=== PATIENT | male | born 1970 ===

== ENCOUNTER 2021-05-05 20:02 | Inpatient (IN) | payer MEDICAID, OTHER ==
[2021-05-05] MEDS ORDERED: ASPIRIN 325 MG TAB PO ONE (20:38)
[2021-05-05 20:54] LABS: Basophils # (Auto) 0.1 K/mm3 (0.0-0.1); Basophils % (Auto) 0.9 % (0.0-1.8); Eosinophils # (Auto) 0.1 K/mm3 (0.0-0.4); Eosinophils % (Auto) 1.7 % (0.0-4.3); Hematocrit 37.7 % (35.5-45.6); Hemoglobin 12.3 gm/dl (11.8-15.2); Lymphocytes # (Auto) 2.3 K/mm3 (1.2-5.4); Mean Corpuscular HGB Conc 33 % (32-34); Mean Corpuscular Volume 81 fl (84-94); Monocytes # (Auto) 0.7 K/mm3 (0.0-0.8); Monocytes % (Auto) 9.2 % (0.0-7.3); Platelet Count 272 K/mm3 (140-440); Red Blood Count 4.67 M/mm3 (3.65-5.03)
[2021-05-05 20:57] LABS: Red Cell Distribution Width 24.1 % (13.2-15.2)
[2021-05-05] MEDS ORDERED: FUROSEMIDE 40 MG/4 ML INJ IV ONE (21:00)
[2021-05-05] MEDS ORDERED: MORPHINE 4 MG/1 ML INJ IV ONE (21:00)
--- NOTE | 2021-05-05 21:07 | Emergency Department Report ---
ED Chest Pain HPI - General Chief Complaint: Chest Pain Stated Complaint: CHF,SOB,CHEST PAIN PUI?: No Time Seen by Provider: 05/05/21 20:51 Source: patient, RN notes reviewed, old records reviewed Mode of arrival: Ambulatory Limitations: No Limitations - History of Present Illness Initial Comments: The patient is a 50-year-old gentleman. He is not known to myself previously. His past medical history includes heart disease with stents, currently takes aspirin, also has a history of DVT and pulmonary embolism, currently on Eliquis, for the past 3 years, also has a history of sickle cell, with partial splenic infarction, and CHF, with ICD in situ. He has been back in [place] for about a month. Previously, he was living in [place], in [place]. He has been seen at both [facility], and [facility], in [place], and believes that he may have had a cardiac catheterization within the past 5 months. He is not quite sure what the catheterization showed. He presents to the ER today with a complaint of chest pain, shortness of breath, lower extremity swelling, feeling volume overloaded. He took aspirin and nitro at home with minimal improvement in symptoms. He has not received his Covid vaccination. He denies loss of taste and smell. He endorses nausea, without vomiting. No diaphoresis. No hematemesis of bright red blood per rectum. He denies use of erectile dysfunction medication. He endorses complete compliance with his Eliquis. Complaint: chest pain, other -: Gradual, hour(s) Pain Location: substernal, right chest Pain Radiation: none Quality: aching Consistency: constant Improves With: nothing Worsens With: nothing Aspirin use within the Past 7 Days: (1) Yes - Related Data Previous Rx's Medication Instructions Recorded Last Taken Type HYDROcodone/APAP 5-325 [[place] 1 each PO Q6HR PRN #20 tablet 09/11/14 Unknown Rx 5/325] Allergies Allergy/AdvReac Type Severity Reaction Status Date / Time ibuprofen [From Motrin] Allergy Unknown Verified 09/06/14 21:34 methocarbamol [From Robaxin] Allergy Hives Verified 09/06/14 21:35 Penicillins Allergy Unknown Verified 09/06/14 21:35 Heart Score - HEART Score History: Moderately suspicious EKG: Non-specific Age: 45-65 Risk factors: > 3 risk factors or hx of atherosclerotic disease Troponin: < normal limit HEART Score: 5 - EKG Read Time Time EKG Completed: 20:19 EKG Read Time: 20:20 - Critical Actions Critical Actions: 4-6 pts:12-16.6% risk of adverse cardiac event. Should be admitted ED Review of Systems ROS: Stated complaint: CHF,SOB,CHEST PAIN Other details as noted in HPI Constitutional: malaise. denies: fever Eyes: denies: eye discharge ENT: denies: epistaxis Respiratory: shortness of breath Cardiovascular: chest pain, edema Gastrointestinal: denies: abdominal pain, vomiting, hematemesis, melena, hematochezia Musculoskeletal: denies: back pain Psychiatric: anxiety Hematological/Lymphatic: denies: easy bleeding ED Past Medical Hx - Past Medical History Previous Medical History?: No Hx Hypertension: Yes Hx Heart Attack/AMI: Yes (x 5) Hx Sickle Cell Disease: Yes Additional medical history: defribillator/pacemaker - Surgical History Additional Surgical History: defribillator/pacemaker - Social History Smoking Status: Former Smoker Substance Use Type: None - Medications Home Medications: Home Medications Medication Instructions Recorded Confirmed Last Taken Type HYDROcodone/APAP 5-325 [[place] 1 each PO Q6HR PRN #20 tablet 09/11/14 Unknown Rx 5/325] ED Physical Exam - General Limitations: No Limitations General appearance: alert, anxious, in distress, obese - Head Head exam: Present: atraumatic, normocephalic - Eye Eye exam: Present: normal appearance, EOMI. Absent: nystagmus - ENT ENT exam: Present: normal exam, normal orophraynx, mucous membranes moist, normal external ear exam - Neck Neck exam: Present: normal inspection, full ROM. Absent: tenderness, meningismus - Respiratory Respiratory exam: Present: normal lung sounds bilaterally. Absent: respiratory distress, wheezes, rales, rhonchi, stridor - Cardiovascular Cardiovascular Exam: Present: regular rate, normal rhythm, JVD. Absent: bradycardia, tachycardia, irregular rhythm, systolic murmur, diastolic murmur, rubs, gallop - GI/Abdominal GI/Abdominal exam: Present: soft, normal bowel sounds. Absent: distended, tenderness, guarding, rebound, rigid, pulsatile mass - Rectal Rectal exam: Present: deferred - Extremities Exam Extremities exam: Present: normal inspection, full ROM, pedal edema (2-3+ edema in the bilateral lower extremities), other (2+ pulses noted in the bilateral upper and lower extremities. There is no palpable cord. negative Homans sign. Muscular compartments are soft. The pelvis is stable.). Absent: calf tenderness - Back Exam Back exam: Present: normal inspection, full ROM. Absent: tenderness, CVA tenderness (R), CVA tenderness (L), paraspinal tenderness, vertebral tenderness - Neurological Exam Neurological exam: Present: alert, oriented X3, other (No facial droop. Tongue midline. Extraocular movements intact bilaterally. Facial sensation intact to light touch in V1, V2, V3 distribution bilaterally. 5 and a 5 strength in 4 extremities. Sensation intact to light touch in 4 extremities.). Absent: motor sensory deficit - Psychiatric Psychiatric exam: Present: anxious - Skin Skin exam: Present: warm, dry, intact, normal color. Absent: rash ED Course Vital Signs 05/05/21 05/05/21 05/05/21 20:23 20:43 23:38 Temperature 98.5 F 98.8 F Pulse Rate 85 93 H 81 Respiratory 28 H 18 Rate Blood Pressure 154/96 130/83 130/102 O2 Sat by Pulse 95 100 Oximetry - Reevaluation(s) Reevaluation #1: 05/05/21 21:19 Differential diagnosis, including but not limited to: Acute congestive heart failure, right-sided heart failure, acute coronary syndrome, pneumonia, obesity, obstructive sleep apnea costochondritis, GERD, gastritis, hiatal hernia, pneumonia Assessment and plan: 50-year-old gentleman who presents to the ER today with a complaint of acute chest pain, moderate risk for major adverse cardiac event as per heart score, not tachycardic or hypoxic, reports compliance with Eliquis, with evidence of volume overload, manifest by JVD, lower extremity edema. Place patient on playground monitor, obtain appropriate laboratory studies, nitroglycerin and morphine for pain, Lasix for lower extremity edema and clinical volume overload. Chest x-ray, laboratory studies pending. We will request [facility] records [facility], and [place]. It is after hours, so I am not confident that we will receive these medical records in a timely fashion. However, this patient meets criteria for admission and hospitalization secondary to the aforementioned. I have discussed this plan of care with the patient, who verbalized understanding, who is amenable to this plan of care. Reevaluation #2: 05/05/21 21:28 Hospital physician, Dr. Cheatham, To admit patient to the medical service. He request CT angiogram of the chest. RASHAD score - Rashad Score Age > 65: (0) No Aspirin use within the Past 7 Days: (1) Yes 3 or more CAD Risk Factors: (1) Yes 2 or more Angina events in past 24 hrs: (1) Yes Known CAD with more than 50% Stenosis: (1) Yes Elevated Cardiac Markers: (0) No ST Deviation Greater than 0.5mm: (0) No RASHAD Score: 4 ED Medical Decision Making - Lab Data Result diagrams: 05/05/21 20:43 05/05/21 20:43 Vital Signs 05/05/21 20:23 Temperature 98.5 F Pulse Rate 85 Respiratory 28 H Rate Blood Pressure 154/96 O2 Sat by Pulse 95 Oximetry Lab Results 05/05/21 05/05/21 05/05/21 Range/Units 20:43 20:43 20:43 WBC 7.6 (4.5-11.0) K/mm3 RBC 4.67 (3.65-5.03) M/mm3 Hgb 12.3 (11.8-15.2) gm/dl Hct 37.7 (35.5-45.6) % MCV 81 L (84-94) fl MCH 26 L (28-32) pg MCHC 33 (32-34) % RDW 24.1 H (13.2-15.2) % Plt Count 272 (140-440) K/mm3 Lymph % (Auto) 30.0 (13.4-35.0) % [place] % (Auto) 9.2 H (0.0-7.3) % Eos % (Auto) 1.7 (0.0-4.3) % Baso % (Auto) 0.9 (0.0-1.8) % Lymph # (Auto) 2.3 (1.2-5.4) K/mm3 [place] # (Auto) 0.7 (0.0-0.8) K/mm3 Eos # (Auto) 0.1 (0.0-0.4) K/mm3 Baso # (Auto) 0.1 (0.0-0.1) K/mm3 Seg Neutrophils % 58.2 (40.0-70.0) % Seg Neutrophils # 4.4 (1.8-7.7) K/mm3 Sodium 135 L (137-145) mmol/L Potassium 3.6 (3.6-5.0) mmol/L Chloride 98.2 (98-107) mmol/L Carbon Dioxide 20 L (22-30) mmol/L Anion Gap 20 mmol/L BUN 12 (9-20) mg/dL Creatinine 1.1 (0.8-1.3) mg/dL Estimated GFR > 60 ml/min BUN/Creatinine Ratio 11 % Glucose 134 H (75-100) mg/dL Calcium 9.9 (8.4-10.2) mg/dL Total Bilirubin 0.20 (0.1-1.2) mg/dL AST 20 (5-40) units/L ALT 18 (7-56) units/L Alkaline Phosphatase 106 (35-129) units/L Troponin T < 0.010 (0.00-0.029) ng/mL NT-Pro-B Natriuret Pep 149.4 (0-900) pg/mL Total Protein 7.6 (6.3-8.2) g/dL Albumin 4.1 (3.9-5) g/dL Albumin/Globulin Ratio 1.2 % - EKG Data -: EKG Interpreted by Dc EKG shows normal: sinus rhythm Rate: normal - EKG Data Interpretation: unchanged when compared t 05/05/21 21:15 The EKG today is interpreted at 20: 19 Sinus rhythm, 80 bpm, normal axis, QTC 465 ms, normal P wave axis, left ventricular hypertrophy, . Abnormal EKG. Not a STEMI. Appears to be unchanged from prior EKG from September 2014. However, poor R wave progression appears to have resolved. - Radiology Data Radiology results: pending, report reviewed, image reviewed [facility] [address] [place] [address] XRay Report Signed Patient: JAZIEL SORIANO II MR# : [id number] : 1970 Acct:[id number] Age/Sex: 50 / M ADM Date: 05/05/21 Loc: ED Attending Dr: Ordering Physician: MATTHEW MATA Date of Service: 05/05/21 Procedure(s): XR chest 1V ap Accession Number(s): [id number] cc: MATTHEW MATA Fluoro Time In Minutes: CHEST 1 VIEW 05/05/2021 8:00 PM INDICATION / CLINICAL INFORMATION: DYSPNEA, CHEST PAIN. COMPARISON: None available. FINDINGS: SUPPORT DEVICES: Pacemaker in satisfactory position. HEART / MEDIASTINUM: Mild cardiomegaly. LUNGS / PLEURA: No significant pulmonary or pleural abnormality. No pneumothorax. ADDITIONAL FINDINGS: No significant additional findings. IMPRESSION: No acute abnormality. Signer Name: Preston Roldan MD Signed: 05/05/2021 9:02 PM Workstation Name: [id number] Transcribed By: ES Dictated By: Preston Roldan MD Electronically Authenticated By: Preston Roldan MD Signed Date/Time: 05/05/212101 DD/ 01 CT scan of the chest negative for acute findings Critical Care Time: Yes Critical care time in (mins) excluding proc time.: 35 Critical care attestation.: If time is entered above; I have spent that time in minutes in the direct care of this critically ill patient, excluding procedure time. ED Disposition Clinical Impression: Acute chest pain, BMI 50.0-59.9, adult, History of CHF (congestive heart failure), Lower extremity edema Disposition: OP ADMIT IP TO THIS HOSP Is pt being admited?: Yes Does the pt Need Aspirin: No (Patient took aspirin prior to arrival) Condition: Good
[2021-05-05 21:19] LABS: Alanine Aminotransferase 18 units/L (7-56); Albumin 4.1 g/dL (3.9-5); BUN/Creatinine Ratio 11; Blood Urea Nitrogen 12 mg/dL (9-20); Calcium 9.9 mg/dL (8.4-10.2); Hemolysis Index 28
[2021-05-05 21:30] LABS: INR 0.92 (0.87-1.13)
[2021-05-05] MEDS ORDERED: METOCLOPRAMIDE 10 MG/2 ML INJ IV PRN (21:49)
[2021-05-05] MEDS ORDERED: SENNOSIDES 8.6 MG TAB PO PRN (21:49)
[2021-05-05] MEDS ORDERED: ONDANSETRON 4 MG/2 ML INJ IV PRN (21:49)
[2021-05-05] MEDS ORDERED: MAGNESIUM HYDROXIDE (MOM) ORAL LIQD UDC PO PRN (21:49)
[2021-05-05] MEDS ORDERED: ALUM-MAG HYDROXIDE-SIMETHICONE 200-200-20MG/5ML ORAL LIQD 30 ML PO PRN (21:49)
[2021-05-05] MEDS ORDERED: ACETAMINOPHEN 325 MG TAB PO PRN (21:49)
--- NOTE | 2021-05-05 22:01 | History and Physical Report ---
History of Present Illness Date of examination: 05/05/21 Date of admission: 05/05/21 Chief complaint: Chest pain Shortness of breath History of present illness: The patient is a 50-year-old male. He has His medical history includes heart disease with stents, currently takes aspirin, also has a history of DVT and pulmonary embolism, currently on Eliquis, for the past 3 years, also has a history of sickle cell, with partial splenic infarction, and CHF, with ICD in situ. He has been back in [place] for about a month. Previously, he was living in [place], in [place]. He has been seen at both [facility], and [facility], in [place], and believes that he may have had a cardiac catheterization within the past 5 months. He is not quite sure what the catheterization showed. He presents to the ER today with a complaint of chest pain, shortness of breath, lower extremity swelling, feeling volume overloaded. He took aspirin and nitro at home with minimal improvement in symptoms. He has not received his Covid vaccination. He denies loss of taste and smell. He endorses nausea, without vomiting. No diaphoresis. No hematemesis of bright red blood per rectum. He denies use of erectile dysfunction medication. ED work-up WBC 7.6, hemoglobin 12.3, platelets 272, sodium 135, potassium 3.6, creatinine 1.1, troponin is negative hemoglobin A1c done 6.7, serum glucose 1.3, and BNP 147. Checks x-ray done no acute finding. Patient is seen in the ED alert and oriented x3 patient reports chest pain or shortness of breath. Patient is on room air O2 sats 95%. Reviewed patient lab valuesnegative for elevated troponin. CTA of the chest is ordered to rule out PE. Patient denies alcohol and illicit drug use. Patient admits tobacco use but quit 2 years ago. Patient advised to continue to quit tobacco use. Past History Past Medical History: acute AK, anemia, COPD, heart failure, hypertension, hyperlipidemia, pulmonary embolism, other (insomnia) Past Surgical History: Other (pace maker and ICD placement) Social history: smoking (but quit 2 years ago), full code Family history: CAD, diabetes, hypertension Medications and Allergies Allergies Allergy/AdvReac Type Severity Reaction Status Date / Time ibuprofen [From Motrin] Allergy Unknown Verified 09/06/14 21:34 methocarbamol [From Robaxin] Allergy Hives Verified 09/06/14 21:35 Penicillins Allergy Unknown Verified 09/06/14 21:35 Home Medications Medication Instructions Recorded Confirmed Last Taken Type HYDROcodone/APAP 5-325 [[place] 1 each PO Q6HR PRN #20 tablet 09/11/14 Unknown Rx 5/325] Active Meds: Active Medications Acetaminophen (Acetaminophen 325 Mg Tab) 650 mg PO Q4H PRN PRN Reason: Pain MILD(1-3)/Fever >100.5/AHUMADA Al Hydrox/Mg Hydrox/Simethicone (Alum-Mag Hydroxide-Simethicone [id number]/5ml Oral Liqd 30 Ml) 30 ml PO Q4H PRN PRN Reason: Indigestion Magnesium Hydroxide (Magnesium Hydroxide (Mom) Oral Liqd Udc) 30 ml PO Q4H PRN PRN Reason: Constipation Metoclopramide HCl (Metoclopramide 10 Mg/2 Ml Inj) 10 mg IV Q6H PRN PRN Reason: Nausea And Vomiting Nitroglycerin (Nitroglycerin 0.4 Mg Tab Subl) 0.4 mg SL .Q5MIN PRN PRN Reason: Chest Pain Ondansetron HCl (Ondansetron 4 Mg/2 Ml Inj) 4 mg IV Q8H PRN PRN Reason: Nausea And Vomiting Senna (Sennosides 8.6 Mg Tab) 8.6 mg PO Q12HR PRN PRN Reason: Constipation Sodium Chloride (Sodium Chloride 0.9% 10 Ml Flush Syringe) 10 ml IV BID ELLE Sodium Chloride (Sodium Chloride 0.9% 10 Ml Flush Syringe) 10 ml IV PRN PRN PRN Reason: LINE FLUSH Review of Systems Constitutional: fatigue, chronic pain Ears, nose, mouth and throat: no epistaxis, no bleeding gums Cardiovascular: chest pain, shortness of breath, dyspnea on exertion Gastrointestinal: no melena Rectal: no hemorrhoids Integumentary: no rash, no pruritis Neurological: no head injury Psychiatric: anxiety, no hallucinations Hematologic/Lymphatic: no easy bruising, no easy bleeding Allergic/Immunologic: no urticaria, no allergic rhinitis Exam - Constitutional Vitals: Temp Pulse Resp BP Pulse Ox 98.5 F 85 28 H 154/96 95 05/05/21 20:23 05/05/21 20:23 05/05/21 20:23 05/05/21 20:23 05/05/21 20:23 General appearance: Present: mild distress, obese - EENT Eyes: Present: PERRL ENT: hearing intact, clear oral mucosa - Neck Neck: Present: supple, normal ROM - Respiratory Respiratory effort: normal Respiratory: bilateral: CTA - Cardiovascular Heart rate: 85 Heart Sounds: Present: S1 & S2. Absent: rub, click - Extremities Extremities: pulses symmetrical, No edema Peripheral Pulses: within normal limits - Abdominal General gastrointestinal: Present: soft, non-tender, non-distended, normal bowel sounds Male genitourinary: Present: normal - Integumentary Integumentary: Present: clear, warm, dry - Musculoskeletal Musculoskeletal: gait normal, strength equal bilaterally - Psychiatric Psychiatric: appropriate mood/affect, intact judgment & insight - Neurologic Neurologic: CNII-XII intact, moves all extremities - Allied Health Allied health notes reviewed: nursing HEART Score - HEART Score EKG: Non-specific Age: 45-65 Risk factors: > 3 risk factors or hx of atherosclerotic disease Troponin: Troponin T < 0.010 ng/mL (0.00-0.029) 05/05/21 20:43 Troponin: < normal limit - Critical Actions Critical Actions: 4-6 pts:12-16.6% risk of adverse cardiac event. Should be admitted Results - Labs CBC & Chem 7: 05/05/21 20:43 05/05/21 20:43 Labs: Abnormal lab results 05/05/21 05/05/21 05/05/21 Range/Units 20:43 20:43 21:07 MCV 81 L (84-94) fl MCH 26 L (28-32) pg RDW 24.1 H (13.2-15.2) % [place] % (Auto) 9.2 H (0.0-7.3) % Sodium 135 L (137-145) mmol/L Carbon Dioxide 20 L (22-30) mmol/L Glucose 134 H (75-100) mg/dL Total Creatine Kinase 340 H (55-170) units/L Assessment and Plan - Patient Problems (1) Acute chest pain Current Visit: Yes Status: Acute Plan to address problem: As needed nitro sublingual Continue cardioprotective measuresaspirin, Lipitor, Lopressor Cardiology consult and echocardiogram ordered. CTA of the chest ordered to rule out pulmonary embolism Troponin is negative (2) History of CHF (congestive heart failure) Current Visit: Yes Status: Acute Plan to address problem: Continue diuretics twice daily Monitor potassium level and other electrolytes Cardio consulted Monitor blood pressure and continue home antihypertensive (3) Morbid obesity due to excess calories Current Visit: Yes Status: Acute Plan to address problem: Discussed lifestyle modification Healthy diet and weight management Check hemoglobin A1c (4) Hx of sickle cell disease Current Visit: Yes Status: Acute Plan to address problem: History of sickle cell diseasecame with chest pain and shortness of breath Pain management as needed (5) COPD (chronic obstructive pulmonary disease) Current Visit: Yes Status: Acute Plan to address problem: Has a history of COPD Bronchodilators as needed and oxygen supplement if needed Patient presently on room air- oxygen saturation 95% (6) Personal history of DVT (deep vein thrombosis) Current Visit: Yes Status: Acute Plan to address problem: Resume home Eliquis 5 mg twice daily (7) Full code status Current Visit: Yes Status: Acute Plan to address problem: Patient is full code
[2021-05-05 22:27] LABS: Chol/HDL Ratio 4.27 %
--- NOTE | 2021-05-05 23:26 | Cat Scan Report ---
CTA CHEST WITH IV CONTRAST INDICATION: Patient complains of acute chest pain with dyspnea S.O.B.. TECHNIQUE: Axial CT images were obtained through the chest after injection of 100 mL IV contrast. 3 plane MIP re constructions were produced. All CT scans at this location are performed using CT dose reduction for ALARA by means of automated exposure control. COMPARISON: None available. FINDINGS: PULMONARY ARTERIES: No pulmonary emboli. AORTA AND ARTERIES: No acute abnormality. MEDIASTINUM: No mass, lymphadenopathy or other significant abnormality. The heart is normal in size w ithout a pericardial effusion. The trachea and main bronchi are patent and normal in caliber. LUNGS: No suspicious consolidation, nodule or mass. No pneumothorax or pleural effusion. Mild subseg mental atelectasis of the right lower lobe. ADDITIONAL FINDINGS: Multiple healing rib fractures identified bilaterally.. UPPER ABDOMEN: No acute findings. BONES: No significant osseous abnormality. IMPRESSION: 1. No CT evidence for pulmonary embolism. 2. No acute findings. Signer Name: Gordo Ma MD Signed: 05/05/2021 11:22 PM Workstation Name: [id number]
[2021-05-05] MEDS: METOPROLOL TARTRATE 50 MG TAB PO SCH (23:38)
[2021-05-05] MEDS: hydrALAZINE 25 MG TAB PO SCH (23:38)
[2021-05-05] MEDS: APIXABAN 5 MG TAB PO SCH (23:38)
[2021-05-05] MEDS: oxyCODONE /ACETAMINOPHEN 5-325MG TAB PO PRN (23:44)
[2021-05-06] MEDS: NITROGLYCERIN 0.4 MG TAB SUBL SL PRN ×3 (03:13→09:45)
[2021-05-06] MEDS ORDERED: MORPHINE 2 MG/1 ML INJ IV ONE (04:30)
[2021-05-06 05:51] LABS: Hemoglobin 11.7 gm/dl (11.8-15.2); Mean Corpuscular HGB Conc 32 % (32-34); Mean Corpuscular Volume 80 fl (84-94); Platelet Count 276 K/mm3 (140-440); Red Blood Count 4.48 M/mm3 (3.65-5.03)
[2021-05-06 05:52] LABS: Red Cell Distribution Width 24.4 % (13.2-15.2)
[2021-05-06 06:07] LABS: BUN/Creatinine Ratio 13; Blood Urea Nitrogen 14 mg/dL (9-20); Calcium 8.7 mg/dL (8.4-10.2); Hemolysis Index 2
[2021-05-06] MEDS: hydrALAZINE 25 MG TAB PO SCH ×3 (06:34→21:53)
[2021-05-06] MEDS: FUROSEMIDE 40 MG/4 ML INJ IV SCH ×2 (06:35→17:13)
[2021-05-06 06:39] LABS: Anisocytosis 2+; Hypochromasia 1+; Total Cells Counted 100
[2021-05-06 06:40] LABS: Platelet Estimate Consistent w Auto
[2021-05-06] MEDS ORDERED: MORPHINE 2 MG/1 ML INJ IV NR (09:36)
[2021-05-06] MEDS ORDERED: POTASSIUM CHLORIDE ER 20 MEQ TAB PO SCH (10:00)
--- NOTE | 2021-05-06 11:18 | Electrocardiograph Report ---
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
[2021-05-06] MEDS: oxyCODONE /ACETAMINOPHEN 5-325MG TAB PO PRN (13:42)
[2021-05-06] MEDS: FERROUS SULFATE 325 MG TAB PO SCH (13:42)
[2021-05-06] MEDS: ASPIRIN EC 81 MG TAB PO SCH (13:43)
[2021-05-06] MEDS: METOPROLOL TARTRATE 50 MG TAB PO SCH ×2 (13:43→21:54)
[2021-05-06] MEDS: APIXABAN 5 MG TAB PO SCH ×2 (13:43→21:54)
[2021-05-06] MEDS: FOLIC ACID 1 MG TAB PO SCH (13:44)
--- NOTE | 2021-05-06 13:53 | Progress Note ---
Assessment and Plan (1) Acute chest pain Current Visit: Yes Status: Acute Plan to address problem: As needed nitro sublingual Continue cardioprotective measuresaspirin, Lipitor, Lopressor Cardiology consult and echocardiogram ordered. CTA of the chest ordered to rule out pulmonary embolism Troponin is negative (2) History of CHF (congestive heart failure) Current Visit: Yes Status: Acute Plan to address problem: Continue diuretics twice daily Monitor potassium level and other electrolytes Cardio consulted Monitor blood pressure and continue home antihypertensive (3) Morbid obesity due to excess calories Current Visit: Yes Status: Acute Plan to address problem: Discussed lifestyle modification Healthy diet and weight management Check hemoglobin A1c (4) Hx of sickle cell disease Current Visit: Yes Status: Acute Plan to address problem: History of sickle cell diseasecame with chest pain and shortness of breath Pain management as needed (5) COPD (chronic obstructive pulmonary disease) exacerbation with acute respiratory failure Current Visit: Yes Status: Acute Plan to address problem: Has a history of COPD Bronchodilators as needed and oxygen supplement if needed Room air O2 sat dropped to 89% -supplemental O2 as needed (6) Personal history of DVT (deep vein thrombosis) Current Visit: Yes Status: Acute Plan to address problem: Resume home Eliquis 5 mg twice daily (7) Full code status Current Visit: Yes Status: Acute Plan to address problem: Patient is full code Daily clinical course: 05/06/21: Patient recently moved out from [place]. Has history of CHF with AICD placed. Continue gentle diuresis, nebulizer breathing treatment. Patient did not receive any Covid vaccine but states that he tested negative few days ago. Await for cardiology recommendation. Continue current management and plan. Subjective Date of service: 05/06/21 Interval history: Patient seen and examined. Medical records and medication list reviewed. No acute event overnight noted by the RN. Patient c/o difficulty breathing. Patient is tolerating diet. Discussed plan of care at bedside with patient. Objective - Exam Narrative Exam: General appearance: Present: well-nourished, other (Mildly short of breath) - EENT Eyes: PERRL, EOM intact ENT: hearing intact, no thrush - Neck Neck: supple, normal ROM - Respiratory Respiratory: bilateral: diminished, negative: rhonchi - Cardiovascular Rhythm: regular Heart Sounds: Present: S1 & S2 Extremity abnormal: other (Trace bilateral leg edema) - Gastrointestinal General gastrointestinal: Present: soft, non-tender Rectal Exam: deferred - Genitourinary Male genitourinary: deferred - Integumentary Integumentary: clear - Musculoskeletal Musculoskeletal: strength equal bilaterally - Neurologic Neurologic: no focal deficits, moves all extremities - Psychiatric Psychiatric: appropriate mood/affect - Constitutional Vitals: Vital Signs - 12hr 05/06/21 05/06/21 05/06/21 02:00 02:10 02:20 Temperature Pulse Rate 71 60 60 Respiratory 20 21 26 H Rate Blood Pressure 112/59 112/59 112/59 O2 Sat by Pulse 85 91 98 Oximetry 05/06/21 05/06/21 05/06/21 02:30 03:13 03:27 Temperature 98.6 F Pulse Rate 71 72 75 Respiratory 23 18 Rate Blood Pressure 116/66 129/77 O2 Sat by Pulse 95 89 Oximetry 05/06/21 05/06/21 05/06/21 06:34 07:22 10:00 Temperature 98.1 F Pulse Rate 75 70 Respiratory 18 18 Rate Blood Pressure 129/77 115/81 O2 Sat by Pulse 93 95 Oximetry - Labs CBC & Chem 7: 05/10/21 05:25 05/10/21 05:25 Labs: Abnormal lab results 05/05/21 05/05/21 05/05/21 Range/Units 20:43 20:43 20:43 Hgb (11.8-15.2) gm/dl MCV 81 L (84-94) fl MCH 26 L (28-32) pg RDW 24.1 H (13.2-15.2) % [place] % (Auto) 9.2 H (0.0-7.3) % Basophils % (Manual) (0.0-1.8) % Sodium 135 L (137-145) mmol/L Carbon Dioxide 20 L (22-30) mmol/L Glucose 134 H (75-100) mg/dL Hemoglobin A1c 6.7 H (4-6) % Total Creatine Kinase (55-170) units/L Triglycerides (2-149) mg/dL 05/05/21 05/05/21 05/06/21 Range/Units 20:43 21:07 05:39 Hgb 11.7 L (11.8-15.2) gm/dl MCV 80 L (84-94) fl MCH 26 L (28-32) pg RDW 24.4 H (13.2-15.2) % [place] % (Auto) (0.0-7.3) % Basophils % (Manual) 2.0 H (0.0-1.8) % Sodium (137-145) mmol/L Carbon Dioxide (22-30) mmol/L Glucose (75-100) mg/dL Hemoglobin A1c (4-6) % Total Creatine Kinase 340 H (55-170) units/L Triglycerides 295 H (2-149) mg/dL 05/06/21 Range/Units 05:39 Hgb (11.8-15.2) gm/dl MCV (84-94) fl MCH (28-32) pg RDW (13.2-15.2) % [place] % (Auto) (0.0-7.3) % Basophils % (Manual) (0.0-1.8) % Sodium (137-145) mmol/L Carbon Dioxide (22-30) mmol/L Glucose 136 H (75-100) mg/dL Hemoglobin A1c (4-6) % Total Creatine Kinase (55-170) units/L Triglycerides (2-149) mg/dL HEART Score - HEART Score EKG: Non-specific Age: 45-65 Risk factors: > 3 risk factors or hx of atherosclerotic disease Troponin: Troponin T < 0.010 ng/mL (0.00-0.029) 05/05/21 23:31 Troponin: < normal limit - Critical Actions Critical Actions: 4-6 pts:12-16.6% risk of adverse cardiac event. Should be admitted
--- NOTE | 2021-05-06 13:58 | Consultation ---
History of Present Illness Consult date: 05/06/21 Consult reason: chest pain, shortness of breath History of present illness: This is a 50-year old M who has recently transition to [place] from [place] and has multiple medical problems. He has a longstanding history of nonischemic cardiomyopathy. Most recent cardiac workup was done a year ago in [place], [place]. A cardiac catheterization showed no significant coronary artery disease but a severely decreased ejection fraction 15-25% by echocardiogram. He has a history of paroxysmal atrial fibrillation and DVT for which he takes Eliquis for oral anticoagulation. He also has an indwelling cardiac defibrillator ([employer]). Patient presents to this hospital with shortness of breath and chest pain. Patient denies palpitations, denies dizziness. No edema. No report of syncope or AICD discharge. On assessment today, he complains of abdominal cramps that usually occurs with intravenous diuretics. Chest x-ray shows cardiomegaly with mild interstitial edema. An ECG is sinus rhythm, LVH with repolarization abnormalities. Cardiology consultation has been requested. Past History Past Medical History: atrial fib, anemia, COPD, heart failure, hypertension, hyperlipidemia, other (insomnia, DVT, sleep apnea on CPAP). denies: CAD Past Surgical History: Other (pace maker and ICD placement) Social history: smoking (but quit 2 years ago), full code, other (substance abuse) Family history: CAD, diabetes, hypertension Medications and Allergies Allergies Allergy/AdvReac Type Severity Reaction Status Date / Time ibuprofen [From Motrin] Allergy Unknown Verified 09/06/14 21:34 methocarbamol [From Robaxin] Allergy Hives Verified 09/06/14 21:35 Penicillins Allergy Unknown Verified 09/06/14 21:35 Home Medications Medication Instructions Recorded Confirmed Last Taken Type HYDROcodone/APAP 5-325 [[place] 1 each PO Q6HR PRN #20 tablet 09/11/14 05/06/21 05/05/21 09:00 Rx 5/325] QUEtiapine [SEROquel] 25 mg PO HS 05/06/21 05/06/21 05/04/21 21:00 History Active Meds: Active Medications Acetaminophen (Acetaminophen 325 Mg Tab) 650 mg PO Q4H PRN PRN Reason: Pain MILD(1-3)/Fever >100.5/[place] Al Hydrox/Mg Hydrox/Simethicone (Alum-Mag Hydroxide-Simethicone [phone]/5ml Oral Liqd 30 Ml) 30 ml PO Q4H PRN PRN Reason: Indigestion Apixaban (Apixaban 5 Mg Tab) 5 mg PO Q12HR [facility] Last Admin: 05/06/21 13:43 Dose: 5 mg Documented by: Aspirin (Aspirin Ec 81 Mg Tab) 81 mg PO QDAY [facility] Last Admin: 05/06/21 13:43 Dose: 81 mg Documented by: Atorvastatin Calcium (Atorvastatin 40 Mg Tab) 40 mg PO QHS [facility] Ferrous Sulfate (Ferrous Sulfate 325 Mg Tab) 325 mg PO QDAY [facility] Last Admin: 05/06/21 13:42 Dose: 325 mg Documented by: Folic Acid (Folic Acid 1 Mg Tab) 1 mg PO QDAY [facility] Last Admin: 05/06/21 13:44 Dose: 1 mg Documented by: Furosemide (Furosemide 40 Mg/4 Ml Inj) 40 mg IV 0600,1800 [facility] Last Admin: 05/06/21 06:35 Dose: 40 mg Documented by: Hydralazine HCl (Hydralazine 25 Mg Tab) 50 mg PO Q8HR [facility] Last Admin: 05/06/21 13:43 Dose: 50 mg Documented by: Magnesium Hydroxide (Magnesium Hydroxide (Mom) Oral Liqd Udc) 30 ml PO Q4H PRN PRN Reason: Constipation Metoclopramide HCl (Metoclopramide 10 Mg/2 Ml Inj) 10 mg IV Q6H PRN PRN Reason: Nausea And Vomiting Metoprolol Tartrate (Metoprolol Tartrate 50 Mg Tab) 50 mg PO BID [facility] Last Admin: 05/06/21 13:43 Dose: 50 mg Documented by: Nitroglycerin (Nitroglycerin 0.4 Mg Tab Subl) 0.4 mg SL .Q5MIN PRN PRN Reason: Chest Pain Last Admin: 05/06/21 09:45 Dose: 0.4 mg Documented by: Ondansetron HCl (Ondansetron 4 Mg/2 Ml Inj) 4 mg IV Q8H PRN PRN Reason: Nausea And Vomiting Oxycodone/Acetaminophen (Oxycodone /Acetaminophen 5-325mg Tab) 1 tab PO Q6H PRN PRN Reason: Pain , Severe (7-10) Last Admin: 05/06/21 13:42 Dose: 1 tab Documented by: Potassium Chloride (Potassium Chloride Er 20 Meq Tab) 20 meq PO QDAY [facility] Senna (Sennosides 8.6 Mg Tab) 8.6 mg PO Q12HR PRN PRN Reason: Constipation Sodium Chloride (Sodium Chloride 0.9% 10 Ml Flush Syringe) 10 ml IV BID [facility] Last Admin: 05/06/21 09:44 Dose: 10 ml Documented by: Sodium Chloride (Sodium Chloride 0.9% 10 Ml Flush Syringe) 10 ml IV PRN PRN PRN Reason: LINE FLUSH Last Admin: 05/06/21 06:35 Dose: 10 ml Documented by: Review of Systems Cardiovascular: chest pain, shortness of breath, no palpitations, no edema Physical Examination Vital Signs Temp Pulse Resp BP Pulse Ox 98.5 F 85 28 H 154/96 95 05/05/21 20:23 05/05/21 20:23 05/05/21 20:23 05/05/21 20:23 05/05/21 20:23 General appearance: no acute distress, obese HEENT: Positive: PERRL Neck: Positive: trachea midline Cardiac: Positive: Reg Rate and Rhythm Lungs: Positive: Decreased Breath Sounds Neuro: Positive: Grossly Intact Results 05/06/21 05:39 05/06/21 05:39 Cardiac Enzymes 05/05/21 Range/Units 20:43 AST 20 (5-40) units/L Coagulation 05/05/21 Range/Units 21:07 PT 13.0 (12.2-14.9) Sec. INR 0.92 (0.87-1.13) Lipids 05/05/21 Range/Units 20:43 Triglycerides 295 H (2-149) mg/dL Cholesterol 184 (50-199) mg/dL HDL Cholesterol 43 (40-59) mg/dL Cholesterol/HDL Ratio 4.27 % CBC 05/05/21 05/06/21 Range/Units 20:43 05:39 WBC 7.6 6.7 (4.5-11.0) K/mm3 RBC 4.67 4.48 (3.65-5.03) M/mm3 Hgb 12.3 11.7 L (11.8-15.2) gm/dl Hct 37.7 36.0 (35.5-45.6) % Plt Count 272 276 (140-440) K/mm3 Lymph # (Auto) 2.3 (1.2-5.4) K/mm3 [place] # (Auto) 0.7 (0.0-0.8) K/mm3 Eos # (Auto) 0.1 (0.0-0.4) K/mm3 Baso # (Auto) 0.1 (0.0-0.1) K/mm3 Comprehensive Metabolic Panel 05/05/21 05/06/21 Range/Units 20:43 05:39 Sodium 135 L 137 (137-145) mmol/L Potassium 3.6 3.7 (3.6-5.0) mmol/L Chloride 98.2 100.5 (98-107) mmol/L Carbon Dioxide 20 L 24 (22-30) mmol/L BUN 12 14 (9-20) mg/dL Creatinine 1.1 1.1 (0.8-1.3) mg/dL Glucose 134 H 136 H (75-100) mg/dL Calcium 9.9 8.7 (8.4-10.2) mg/dL AST 20 (5-40) units/L ALT 18 (7-56) units/L Alkaline Phosphatase 106 (35-129) units/L Total Protein 7.6 (6.3-8.2) g/dL Albumin 4.1 (3.9-5) g/dL Assessment and Plan Acute on chronic systolic heart failure LVEF 15-20% by echo this admission 04/2020 [facility] at [facility]: showed no significant coronary artery disease with a severely decreased ejection fraction 15-25% by echocardiogram. Hx of paroxysmal atrial fibrillation/ DVT takes Eliquis for oral anticoagulation. Presence of indwelling cardiac defibrillator ([employer]) Obesity Sleep apnea uses CPAP as an outpatient Recommendations: Low sodium diet and fluid restriction. Continue medical therapy for paroxysmal atrial fibrillation, acute on chronic systolic heart failure and nonischemic cardiomyopathy. Monitor labs daily.
[2021-05-06] MEDS: HYDROcodone/ACETAMINOPHEN 5-325 MG TAB PO PRN ×2 (17:11→21:58)
[2021-05-06] MEDS: guaiFENesin ER 600 MG TAB PO SCH (21:53)
[2021-05-06] MEDS: QUEtiapine 25 MG TAB PO SCH (21:53)
[2021-05-07] MEDS: hydrALAZINE 25 MG TAB PO SCH ×3 (07:06→21:43)
[2021-05-07] MEDS: FUROSEMIDE 40 MG/4 ML INJ IV SCH ×2 (07:06→17:26)
[2021-05-07] MEDS ORDERED: MORPHINE 4 MG/1 ML INJ IV STA (08:10)
[2021-05-07] MEDS ORDERED: MORPHINE 2 MG/1 ML INJ IV SCH (08:30)
--- NOTE | 2021-05-07 09:55 | Electrocardiograph Report ---
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
[2021-05-07] MEDS: FERROUS SULFATE 325 MG TAB PO SCH (10:40)
[2021-05-07] MEDS: ASPIRIN EC 81 MG TAB PO SCH (10:41)
[2021-05-07] MEDS: FOLIC ACID 1 MG TAB PO SCH (10:41)
[2021-05-07] MEDS: APIXABAN 5 MG TAB PO SCH ×2 (10:41→21:43)
[2021-05-07] MEDS: guaiFENesin ER 600 MG TAB PO SCH ×2 (10:41→21:43)
[2021-05-07] MEDS: METOPROLOL TARTRATE 50 MG TAB PO SCH ×2 (10:41→21:43)
[2021-05-07] MEDS: HYDROcodone/ACETAMINOPHEN 5-325 MG TAB PO PRN ×3 (10:41→20:27)
[2021-05-07] MEDS: SPIRONOLACTONE 25 MG TAB PO SCH (10:41)
--- NOTE | 2021-05-07 10:55 | Progress Note ---
Assessment and Plan Acute on chronic systolic heart failure LVEF 15-20% by echo this admission 04/2020 [facility] at [facility]: showed no significant coronary artery disease with a severely decreased ejection fraction 15-25% by echocardiogram. Hx of DVT takes Eliquis for oral anticoagulation. A CT angiogram of the chest was negative for pulmonary embolism. Presence of indwelling cardiac defibrillator ([employer]) Obesity Sleep apnea uses CPAP as an outpatient Recommendations: Low sodium diet and fluid restriction. Aggressive medical therapy acute on chronic systolic heart failure and nonischemic cardiomyopathy including a trial of IV milrinone therapy. Subjective Date of service: 05/07/21 Interval history: Patient complains of shortness of breath with minimal exertion. Objective Vital Signs Temp Pulse Resp BP BP Pulse Ox 05/07/21 10:41 61 120/65 05/07/21 09:00 95 05/07/21 07:56 98.3 F 61 20 120/65 95 05/07/21 04:36 97.6 F 59 L 20 115/76 91 05/07/21 00:41 97.2 F L 56 L 22 120/69 94 05/06/21 22:05 100 05/06/21 21:58 20 05/06/21 20:29 58 L 05/06/21 19:48 97.6 F 58 L 24 130/86 95 05/06/21 16:22 98.1 F 68 18 130/80 93 05/06/21 15:00 76 - Physical Examination General: No Apparent Distress, Other HEENT: Positive: PERRL Neck: Positive: trachea midline Cardiac: Positive: Reg Rate and Rhythm Lungs: Positive: Decreased Breath Sounds Neuro: Positive: Grossly Intact
[2021-05-07] MEDS: MILRINONE-D5W 20 MG/100 ML 20 MG/100 ML BAG IV SCH ×2 (13:06→21:25)
[2021-05-07] MEDS: PROMETHAZINE 12.5 MG/10 ML ORAL LIQD PO PRN (14:56)
--- NOTE | 2021-05-07 16:01 | Progress Note ---
Assessment and Plan (1) Acute chest pain Current Visit: Yes Status: Acute Plan to address problem: As needed nitro sublingual Continue cardioprotective measuresaspirin, Lipitor, Lopressor Cardiology consult and echocardiogram ordered. CTA of the chest ordered to rule out pulmonary embolism Troponin is negative (2) History of CHF (congestive heart failure) Current Visit: Yes Status: Acute Plan to address problem: Continue diuretics twice daily Monitor potassium level and other electrolytes Cardio consulted Monitor blood pressure and continue home antihypertensive (3) Morbid obesity due to excess calories Current Visit: Yes Status: Acute Plan to address problem: Discussed lifestyle modification Healthy diet and weight management Check hemoglobin A1c (4) Hx of sickle cell disease Current Visit: Yes Status: Acute Plan to address problem: History of sickle cell diseasecame with chest pain and shortness of breath Pain management as needed (5) COPD (chronic obstructive pulmonary disease) exacerbation with acute respiratory failure Current Visit: Yes Status: Acute Plan to address problem: Has a history of COPD Bronchodilators as needed and oxygen supplement if needed Room air O2 sat dropped to 89% -supplemental O2 as needed (6) Personal history of DVT (deep vein thrombosis) Current Visit: Yes Status: Acute Plan to address problem: Resume home Eliquis 5 mg twice daily (7) Full code status Current Visit: Yes Status: Acute Plan to address problem: Patient is full code Daily clinical course: 05/06/21: Patient recently moved out from [place]. Has history of CHF with AICD placed. Continue gentle diuresis, nebulizer breathing treatment. Patient did not receive any Covid vaccine but states that he tested negative few days ago. Await for cardiology recommendation. Continue current management and plan. 05/07/21; 2D echo showed EF of 15%, cardiology recommended to initiate on milrinone drip. Continue IV diuretics, monitor ins and outs and daily weight. Subjective Date of service: 05/07/21 Interval history: Patient seen and examined. Medical records and medication list reviewed. No acute event overnight noted by the RN. Patient c/o difficulty breathing. Patient is tolerating diet. Discussed plan of care at bedside with patient. Objective - Exam Narrative Exam: General appearance: Present: well-nourished, other (Mildly short of breath) - EENT Eyes: PERRL, EOM intact ENT: hearing intact, no thrush - Neck Neck: supple, normal ROM - Respiratory Respiratory: bilateral: diminished, negative: rhonchi - Cardiovascular Rhythm: regular Heart Sounds: Present: S1 & S2 Extremity abnormal: other (Trace bilateral leg edema) - Gastrointestinal General gastrointestinal: Present: soft, non-tender Rectal Exam: deferred - Genitourinary Male genitourinary: deferred - Integumentary Integumentary: clear - Musculoskeletal Musculoskeletal: strength equal bilaterally - Neurologic Neurologic: no focal deficits, moves all extremities - Psychiatric Psychiatric: appropriate mood/affect - Constitutional Vitals: Vital Signs - 12hr 05/07/21 05/07/21 05/07/21 04:36 07:07 07:56 Temperature 97.6 F 98.3 F Pulse Rate 59 L 90 61 Respiratory 20 20 Rate Blood Pressure 115/76 120/65 O2 Sat by Pulse 91 95 Oximetry 05/07/21 05/07/21 05/07/21 09:00 10:00 10:41 Temperature Pulse Rate 61 Respiratory 20 Rate Blood Pressure 120/65 O2 Sat by Pulse 95 Oximetry 05/07/21 12:00 Temperature Pulse Rate 61 Respiratory Rate Blood Pressure O2 Sat by Pulse Oximetry - Labs CBC & Chem 7: 05/10/21 05:25 05/10/21 05:25 HEART Score - HEART Score EKG: Non-specific Age: 45-65 Risk factors: > 3 risk factors or hx of atherosclerotic disease Troponin: Troponin T < 0.010 ng/mL (0.00-0.029) 05/05/21 23:31 Troponin: < normal limit - Critical Actions Critical Actions: 4-6 pts:12-16.6% risk of adverse cardiac event. Should be admitted
[2021-05-07] MEDS: oxyCODONE /ACETAMINOPHEN 5-325MG TAB PO PRN (20:28)
[2021-05-07] MEDS: QUEtiapine 25 MG TAB PO SCH (21:43)
[2021-05-08] MEDS: MILRINONE-D5W 20 MG/100 ML 20 MG/100 ML BAG IV SCH ×3 (03:57→17:09)
[2021-05-08] MEDS: HYDROcodone/ACETAMINOPHEN 5-325 MG TAB PO PRN ×3 (04:56→21:48)
[2021-05-08] MEDS: FUROSEMIDE 40 MG/4 ML INJ IV SCH ×2 (05:00→17:10)
[2021-05-08] MEDS: hydrALAZINE 25 MG TAB PO SCH ×3 (05:00→21:44)
[2021-05-08 05:23] LABS: BUN/Creatinine Ratio 17; Blood Urea Nitrogen 17 mg/dL (9-20); Calcium 8.9 mg/dL (8.4-10.2); Hemolysis Index 2
[2021-05-08] MEDS: ASPIRIN EC 81 MG TAB PO SCH (09:38)
[2021-05-08] MEDS: guaiFENesin ER 600 MG TAB PO SCH ×2 (09:38→21:45)
[2021-05-08] MEDS: APIXABAN 5 MG TAB PO SCH ×2 (09:38→21:44)
[2021-05-08] MEDS: FERROUS SULFATE 325 MG TAB PO SCH (09:38)
[2021-05-08] MEDS: FOLIC ACID 1 MG TAB PO SCH (09:38)
[2021-05-08] MEDS: SPIRONOLACTONE 25 MG TAB PO SCH (09:38)
[2021-05-08] MEDS: METOPROLOL TARTRATE 50 MG TAB PO SCH ×2 (09:40→21:44)
[2021-05-08] MEDS: PROMETHAZINE 12.5 MG/10 ML ORAL LIQD PO PRN (09:43)
--- NOTE | 2021-05-08 10:07 | Progress Note ---
Assessment and Plan Acute on chronic systolic heart failure LVEF 15-20% by echo this admission 04/2020 [facility] at [facility]: showed no significant coronary artery disease with a severely decreased ejection fraction 15-25% by echocardiogram. Hx of DVT takes Eliquis for oral anticoagulation. A CT angiogram of the chest was negative for pulmonary embolism. Presence of indwelling cardiac defibrillator ([employer]) Obesity Sleep apnea uses CPAP as an outpatient Recommendations: Advised low sodium diet and fluid restriction. Will continue aggressive medical therapy acute on chronic systolic heart failure including a trial of IV milrinone therapy. Subjective Date of service: 05/08/21 Interval history: IV milrinone continues. Patient reports his breathing has improved. Objective Vital Signs Temp Pulse Resp BP Pulse Ox 05/08/21 09:40 60 116/73 05/08/21 09:38 62 116/73 05/08/21 09:03 100 05/08/21 08:53 20 97 05/08/21 08:27 98.3 F 62 19 116/73 96 05/08/21 04:56 20 05/08/21 04:02 98.0 F 61 18 95/48 92 05/07/21 23:45 98.0 F 82 18 92/53 95 05/07/21 21:40 20 05/07/21 20:29 70 05/07/21 20:28 20 05/07/21 19:19 97.4 F L 78 18 119/71 95 05/07/21 18:18 97.6 F 70 18 120/61 94 05/07/21 16:00 72 05/07/21 12:00 61 05/07/21 10:41 61 120/65 - Physical Examination General: No Apparent Distress, Other HEENT: Positive: PERRL Neck: Positive: trachea midline Neuro: Positive: Grossly Intact - Labs and Meds Comprehensive Metabolic Panel 05/08/21 Range/Units 04:05 Sodium 138 (137-145) mmol/L Potassium 3.9 (3.6-5.0) mmol/L Chloride 100.7 (98-107) mmol/L Carbon Dioxide 26 (22-30) mmol/L BUN 17 (9-20) mg/dL Creatinine 1.0 (0.8-1.3) mg/dL Glucose 165 H (75-100) mg/dL Calcium 8.9 (8.4-10.2) mg/dL
--- NOTE | 2021-05-08 14:27 | Progress Note ---
Subjective Date of service: 05/08/21 Interval history: Assessment and plan Acute on chronic CHF EF 15 to 20% On milrinone drip Status post AICD placement Continue diuretics Monitor electrolytes Cardio consulted and note reviewed Morbid obesity Discussed lifestyle modification Healthy diet and weight management A1c 6.7 History of sickle cell diseasecame with chest pain and shortness of breath Pain management as needed COPD/chronic bronchitis Patient insists on taking Phenergan for his cough Bronchodilators as needed and oxygen supplement if needed Room air O2 sat dropped to 89% -supplemental O2 as needed We will start the patient on mucolytic agent and Tessalon Add DuoNeb solution via nebulizer as needed History of DVT Continue Eliquis 5 mg twice daily History of MAHSA Will order CPAP at at bedtime Patient is full code HPI: History of present illness: The patient is a 50-year-old male. He has His medical history includes heart disease with stents, currently takes aspirin, also has a history of DVT and pulmonary embolism, currently on Eliquis, for the past 3 years, also has a history of sickle cell, with partial splenic infarction, and CHF, with ICD in situ. He has been back in [place] for about a month. Previously, he was living in [place], in [place]. He has been seen at both [facility], [place], [facility], and [facility], in [place], and believes that he may have had a cardiac catheterization within the past 5 months. He is not quite sure what the catheterization showed. He presents to the ER today with a complaint of chest pain, shortness of breath, lower extremity swelling, feeling volume overloaded. He took aspirin and nitro at home with minimal improvement in symptoms. He has not received his Covid vaccination. He denies loss of taste and smell. He endorses nausea, without vomiting. No diaphoresis. No hematemesis of bright red blood per rectum. He denies use of erectile dysfunction medication. ED work-up WBC 7.6, hemoglobin 12.3, platelets 272, sodium 135, potassium 3.6, creatinine 1.1, troponin is negative hemoglobin A1c done 6.7, serum glucose 1.3, and BNP 147. Checks x-ray done no acute finding. Patient is seen in the ED alert and oriented x3 patient reports chest pain or shortness of breath. Patient is on room air O2 sats 95%. Reviewed patient lab valuesnegative for elevated troponin. CTA of the chest is ordered to rule out PE. Patient denies alcohol and illicit drug use. Patient admits tobacco use but quit 2 years ago. Patient advised to continue to quit tobacco use. Daily clinical course: 05/06/21: Patient recently moved out from [place]. Has history of CHF with AICD placed. Continue gentle diuresis, nebulizer breathing treatment. Patient did not receive any Covid vaccine but states that he tested negative few days ago. Await for cardiology recommendation. Continue current management and plan. 05/07/21; 2D echo showed EF of 15%, cardiology recommended to initiate on milrinone drip. Continue IV diuretics, monitor ins and outs and daily weight. 05/08 patient is alert and oriented complains of cough and wants Phenergan for his cough, he denies chest pain, nausea, abdominal pain. Denies fever or chills He appears mildly dyspneic, he is on milrinone drip. Cardiology note reviewed. Lab results reviewed Objective - Constitutional Vitals: Vital Signs - 12hr 05/08/21 05/08/21 05/08/21 04:02 04:56 07:15 Temperature 98.0 F Pulse Rate 61 61 Respiratory 18 20 Rate Blood Pressure 95/48 O2 Sat by Pulse 92 Oximetry 05/08/21 05/08/21 05/08/21 08:27 08:53 09:03 Temperature 98.3 F Pulse Rate 62 Respiratory 19 20 Rate Blood Pressure 116/73 O2 Sat by Pulse 96 97 100 Oximetry 05/08/21 05/08/21 09:38 09:40 Temperature Pulse Rate 62 60 Respiratory Rate Blood Pressure 116/73 116/73 O2 Sat by Pulse Oximetry General appearance: Present: well-nourished, other (Mildly short of breath) - EENT Eyes: PERRL, EOM intact ENT: hearing intact, no thrush - Neck Neck: supple, normal ROM - Respiratory Respiratory: bilateral: diminished, negative: rhonchi - Cardiovascular Rhythm: regular Heart Sounds: Present: S1 & S2 Extremity abnormal: other (Trace bilateral leg edema) - Gastrointestinal General gastrointestinal: Present: soft, non-tender Rectal Exam: deferred - Genitourinary Male genitourinary: deferred - Integumentary Integumentary: clear - Musculoskeletal Musculoskeletal: strength equal bilaterally - Neurologic Neurologic: no focal deficits, moves all extremities - Psychiatric Psychiatric: appropriate mood/affect - Labs CBC & Chem 7: 05/06/21 05:39 05/08/21 04:05 Labs: Abnormal lab results 05/08/21 Range/Units 04:05 Glucose 165 H (75-100) mg/dL HEART Score - HEART Score EKG: Non-specific Age: 45-65 Risk factors: > 3 risk factors or hx of atherosclerotic disease Troponin: Troponin T < 0.010 ng/mL (0.00-0.029) 05/05/21 23:31 Troponin: < normal limit - Critical Actions Critical Actions: 4-6 pts:12-16.6% risk of adverse cardiac event. Should be admitted
[2021-05-08] MEDS: guaiFENesin DM 200/20 MG ORAL LIQD 10 ML PO SCH ×2 (14:41→21:45)
[2021-05-08] MEDS: QUEtiapine 25 MG TAB PO SCH (21:44)
[2021-05-08] MEDS: BENZONATATE 100 MG CAP PO SCH (21:45)
[2021-05-08] MEDS: IPRATROPIUM/ALBUTEROL SULFATE 3 ML AMPUL.NEB IH SCH (22:15)
[2021-05-09] MEDS: MILRINONE-D5W 20 MG/100 ML 20 MG/100 ML BAG IV SCH ×2 (00:31→14:28)
[2021-05-09] MEDS: guaiFENesin DM 200/20 MG ORAL LIQD 10 ML PO SCH ×5 (03:43→21:23)
[2021-05-09] MEDS: hydrALAZINE 25 MG TAB PO SCH ×3 (05:54→21:22)
[2021-05-09] MEDS: FUROSEMIDE 40 MG/4 ML INJ IV SCH ×2 (05:54→18:11)
[2021-05-09] MEDS: BENZONATATE 100 MG CAP PO SCH ×3 (05:54→21:23)
[2021-05-09] MEDS: IPRATROPIUM/ALBUTEROL SULFATE 3 ML AMPUL.NEB IH SCH ×3 (07:08→20:44)
[2021-05-09] MEDS: oxyCODONE /ACETAMINOPHEN 5-325MG TAB PO PRN (07:56)
--- NOTE | 2021-05-09 09:15 | Progress Note ---
Assessment and Plan Acute on chronic systolic heart failure LVEF 15-20% by echo this admission 04/2020 [facility]: showed no significant coronary artery disease with a severely decreased ejection fraction 15-25% by echocardiogram. Hx of DVT takes Eliquis for oral anticoagulation. A CT angiogram of the chest was negative for pulmonary embolism. Presence of indwelling cardiac defibrillator ([employer]) Obesity Sleep apnea uses CPAP as an outpatient Recommendations: Advised low sodium diet and fluid restriction. Continue aggressive medical therapy acute on chronic systolic heart failure including a trial of IV milrinone therapy for another 24 hours. Subjective Date of service: 05/09/21 Interval history: Patient is tearful this morning, wants to go home. IV milrinone continues. No reported events on telemetry. Objective Vital Signs Temp Pulse Pulse Resp Resp BP BP 05/09/21 08:24 97.5 F L 65 19 101/51 05/09/21 07:08 74 18 05/09/21 05:54 66 125/74 05/09/21 04:00 98.6 F 64 18 125/74 05/08/21 23:53 98.7 F 72 20 114/61 05/08/21 22:16 82 20 05/08/21 22:00 94 H 05/08/21 21:44 88 129/77 05/08/21 21:00 20 05/08/21 20:00 98.1 F 84 22 129/77 05/08/21 16:27 97.9 F 74 22 124/74 05/08/21 14:43 95 H 120/80 05/08/21 14:42 86 120/80 05/08/21 09:40 60 116/73 05/08/21 09:38 62 116/73 Pulse Ox 05/09/21 08:24 91 05/09/21 07:08 94 05/09/21 05:54 05/09/21 04:00 05/08/21 23:53 05/08/21 22:16 94 05/08/21 22:00 05/08/21 21:44 05/08/21 21:00 98 05/08/21 20:00 05/08/21 16:27 91 05/08/21 14:43 91 05/08/21 14:42 05/08/21 09:40 05/08/21 09:38 - Physical Examination General: No Apparent Distress, Other (obese) HEENT: Positive: PERRL Neck: Positive: trachea midline Cardiac: Positive: Reg Rate and Rhythm Lungs: Positive: Decreased Breath Sounds Neuro: Positive: Grossly Intact
[2021-05-09] MEDS: APIXABAN 5 MG TAB PO SCH ×2 (10:31→21:23)
[2021-05-09] MEDS: ASPIRIN EC 81 MG TAB PO SCH (10:31)
[2021-05-09] MEDS: FOLIC ACID 1 MG TAB PO SCH (10:31)
[2021-05-09] MEDS: guaiFENesin ER 600 MG TAB PO SCH (10:31)
[2021-05-09] MEDS: METOPROLOL TARTRATE 50 MG TAB PO SCH ×2 (10:31→21:22)
[2021-05-09] MEDS: SPIRONOLACTONE 25 MG TAB PO SCH (10:32)
[2021-05-09] MEDS: FERROUS SULFATE 325 MG TAB PO SCH (10:32)
[2021-05-09] MEDS ORDERED: PROMETHAZINE/CODEINE 6.25-10 MG ORAL LIQD 5 ML PO PRN (14:28)
--- NOTE | 2021-05-09 14:28 | Progress Note ---
Subjective Date of service: 05/09/21 Interval history: Assessment and plan Acute on chronic CHF EF 15 to 20% On milrinone drip Status post AICD placement Continue diuretics Monitor electrolytes Cardio consulted and note reviewed Morbid obesity Discussed lifestyle modification Healthy diet and weight management A1c 6.7 History of sickle cell diseasecame with chest pain and shortness of breath Pain management as needed COPD/chronic bronchitis Patient insists on taking Phenergan for his cough Bronchodilators as needed and oxygen supplement if needed Room air O2 sat dropped to 89% -supplemental O2 as needed We will start the patient on mucolytic agent and Tessalon Add DuoNeb solution via nebulizer as needed History of DVT Continue Eliquis 5 mg twice daily History of MAHSA Will order CPAP at at bedtime Patient is full code HPI: History of present illness: The patient is a 50-year-old male. He has His medical history includes heart disease with stents, currently takes aspirin, also has a history of DVT and pulmonary embolism, currently on Eliquis, for the past 3 years, also has a history of sickle cell, with partial splenic infarction, and CHF, with ICD in situ. He has been back in [place] for about a month. Previously, he was living in [place], in [place]. He has been seen at both [facility], [place], and [facility], in [place], and believes that he may have had a cardiac catheterization within the past 5 months. He is not quite sure what the catheterization showed. He presents to the ER today with a complaint of chest pain, shortness of breath, lower extremity swelling, feeling volume overloaded. He took aspirin and nitro at home with minimal improvement in symptoms. He has not received his Covid vaccination. He denies loss of taste and smell. He endorses nausea, without vomiting. No diaphoresis. No hematemesis of bright red blood per rectum. He denies use of erectile dysfunction medication. ED work-up WBC 7.6, hemoglobin 12.3, platelets 272, sodium 135, potassium 3.6, creatinine 1.1, troponin is negative hemoglobin A1c done 6.7, serum glucose 1.3, and BNP 147. Checks x-ray done no acute finding. Patient is seen in the ED alert and oriented x3 patient reports chest pain or shortness of breath. Patient is on room air O2 sats 95%. Reviewed patient lab valuesnegative for elevated troponin. CTA of the chest is ordered to rule out PE. Patient denies alcohol and illicit drug use. Patient admits tobacco use but quit 2 years ago. Patient advised to continue to quit tobacco use. Daily clinical course: 05/06/21: Patient recently moved out from [place]. Has history of CHF with AICD placed. Continue gentle diuresis, nebulizer breathing treatment. Patient did not receive any Covid vaccine but states that he tested negative few days ago. Await for cardiology recommendation. Continue current management and plan. 05/07/21; 2D echo showed EF of 15%, cardiology recommended to initiate on milrinone drip. Continue IV diuretics, monitor ins and outs and daily weight. 05/08 patient is alert and oriented complains of cough and wants Phenergan for his cough, he denies chest pain, nausea, abdominal pain. Denies fever or chills He appears mildly dyspneic, he is on milrinone drip. Cardiology note reviewed. Lab results reviewed 05/09 patient is alert and oriented, moderately short of breath, complains of cough and insists on getting Promethazine DM for his cough Cardiology note reviewed Objective - Constitutional Vitals: Vital Signs - 12hr 05/09/21 05/09/21 05/09/21 04:00 05:54 07:08 Temperature 98.6 F Pulse Rate 64 66 Pulse Rate [ 74 Anterior Throughout] Respiratory 18 Rate Respiratory 18 Rate [Anterior Throughout] Blood Pressure 125/74 Blood Pressure 125/74 [Left] O2 Sat by Pulse 94 Oximetry 05/09/21 05/09/21 05/09/21 08:24 10:31 10:32 Temperature 97.5 F L Pulse Rate 65 65 65 Pulse Rate [ Anterior Throughout] Respiratory 19 Rate Respiratory Rate [Anterior Throughout] Blood Pressure 101/51 101/51 Blood Pressure 101/51 [Left] O2 Sat by Pulse 91 Oximetry 05/09/21 14:04 Temperature 98.3 F Pulse Rate 86 Pulse Rate [ Anterior Throughout] Respiratory 18 Rate Respiratory Rate [Anterior Throughout] Blood Pressure Blood Pressure 132/76 [Left] O2 Sat by Pulse 98 Oximetry General appearance: Present: mild distress, obese - EENT Eyes: PERRL, EOM intact ENT: hearing intact, clear oral mucosa - Neck Neck: supple, normal ROM - Respiratory Respiratory: bilateral: CTA, diminished - Cardiovascular Rhythm: regular Heart Sounds: Present: S1 & S2 Extremity abnormal: edema (Bilateral 1+ lower extremity) - Gastrointestinal General gastrointestinal: Present: soft, non-tender Rectal Exam: deferred - Genitourinary Male genitourinary: deferred - Integumentary Integumentary: clear - Neurologic Neurologic: no focal deficits - Psychiatric Psychiatric: appropriate mood/affect - Labs CBC & Chem 7: 05/06/21 05:39 05/08/21 04:05 HEART Score - HEART Score EKG: Non-specific Age: 45-65 Risk factors: > 3 risk factors or hx of atherosclerotic disease Troponin: Troponin T < 0.010 ng/mL (0.00-0.029) 05/05/21 23:31 Troponin: < normal limit - Critical Actions Critical Actions: 4-6 pts:12-16.6% risk of adverse cardiac event. Should be admitted
[2021-05-09] MEDS: PROMETHAZINE 12.5 MG/10 ML ORAL LIQD PO PRN (14:29)
[2021-05-09] MEDS: HYDROcodone/ACETAMINOPHEN 5-325 MG TAB PO PRN (16:18)
[2021-05-09] MEDS: QUEtiapine 25 MG TAB PO SCH (21:23)
[2021-05-10] MEDS: guaiFENesin DM 200/20 MG ORAL LIQD 10 ML PO SCH ×2 (03:00→09:31)
[2021-05-10] MEDS: hydrALAZINE 25 MG TAB PO SCH (05:46)
[2021-05-10] MEDS: MILRINONE-D5W 20 MG/100 ML 20 MG/100 ML BAG IV SCH (05:49)
[2021-05-10 05:55] LABS: Hematocrit 35.7 % (35.5-45.6); Hemoglobin 11.3 gm/dl (11.8-15.2); Mean Corpuscular HGB Conc 32 % (32-34); Mean Corpuscular Volume 81 fl (84-94); Platelet Count 257 K/mm3 (140-440); Red Blood Count 4.42 M/mm3 (3.65-5.03)
[2021-05-10 06:00] LABS: Red Cell Distribution Width 24.3 % (13.2-15.2)
[2021-05-10 06:23] LABS: BUN/Creatinine Ratio 14; Blood Urea Nitrogen 14 mg/dL (9-20); Calcium 9.2 mg/dL (8.4-10.2); Hemolysis Index 3
[2021-05-10] MEDS: FUROSEMIDE 40 MG/4 ML INJ IV SCH (07:08)
[2021-05-10] MEDS: BENZONATATE 100 MG CAP PO SCH (07:08)
--- NOTE | 2021-05-10 08:18 | Progress Note ---
Assessment and Plan - Patient Problems (1) History of CHF (congestive heart failure) Current Visit: Yes Status: Acute Subjective Date of service: 05/10/21 Interval history: feels ok,,wants to go Objective Vital Signs Temp Pulse Pulse Resp Resp BP BP 05/10/21 04:35 05/10/21 03:16 97.8 F 82 16 109/77 05/09/21 23:14 98.0 F 76 18 95/48 05/09/21 20:44 84 18 05/09/21 19:22 98.2 F 90 18 130/85 05/09/21 16:16 98.2 F 88 19 113/60 05/09/21 14:40 77 18 05/09/21 14:31 86 132/76 05/09/21 14:09 132/76 05/09/21 14:04 98.3 F 86 18 132/76 05/09/21 10:32 65 101/51 05/09/21 10:31 65 101/51 05/09/21 08:24 97.5 F L 65 19 101/51 Pulse Ox 05/10/21 04:35 97 05/10/21 03:16 91 05/09/21 23:14 87 05/09/21 20:44 100 05/09/21 19:22 92 05/09/21 16:16 98 05/09/21 14:40 05/09/21 14:31 05/09/21 14:09 05/09/21 14:04 98 05/09/21 10:32 05/09/21 10:31 05/09/21 08:24 91 - Physical Examination General: No Apparent Distress, Other (obese) HEENT: Positive: PERRL Neck: Positive: trachea midline Cardiac: Positive: Reg Rate and Rhythm Lungs: Positive: clear to auscultation Neuro: Positive: Grossly Intact Extremities: Present: normal - Labs and Meds CBC 05/10/21 Range/Units 05:25 WBC 7.3 (4.5-11.0) K/mm3 RBC 4.42 (3.65-5.03) M/mm3 Hgb 11.3 L (11.8-15.2) gm/dl Hct 35.7 (35.5-45.6) % Plt Count 257 (140-440) K/mm3 Comprehensive Metabolic Panel 05/10/21 Range/Units 05:25 Sodium 138 (137-145) mmol/L Potassium 4.1 (3.6-5.0) mmol/L Chloride 99.7 (98-107) mmol/L Carbon Dioxide 25 (22-30) mmol/L BUN 14 (9-20) mg/dL Creatinine 1.0 (0.8-1.3) mg/dL Glucose 161 H (75-100) mg/dL Calcium 9.2 (8.4-10.2) mg/dL
[2021-05-10 09:27] VITALS: BP 112/58
[2021-05-10] MEDS: METOPROLOL TARTRATE 50 MG TAB PO SCH (09:28)
[2021-05-10] MEDS: ASPIRIN EC 81 MG TAB PO SCH (09:28)
[2021-05-10] MEDS: APIXABAN 5 MG TAB PO SCH (09:28)
[2021-05-10] MEDS: SPIRONOLACTONE 25 MG TAB PO SCH (09:28)
[2021-05-10] MEDS: FOLIC ACID 1 MG TAB PO SCH (09:28)
[2021-05-10] MEDS: FERROUS SULFATE 325 MG TAB PO SCH (09:28)
--- NOTE | 2021-05-10 11:03 | Discharge Summary ---
Providers - Providers Date of Admission: 05/06/21 16:27 Date of discharge: 05/10/21 Attending physician: LEEROY STEIN 05/05/21 Consult to Cardiac Rehabilitation [CONS] Routine Reason For Exam: Phase 1 05/05/21 21:49 Consult to Physician [CONS] Routine Comment: Consulting Provider: MACY HEART Bailey AMIN Physician Instructions: Reason For Exam: chest pain Primary care physician: EVENT PROMOTER Hospitalization Reason for admission: Acute CHF Condition: Good Hospital course: Acute on chronic CHF EF 15 to 20% Cardiology note reviewed Patient was cleared for discharge by cardiology Off milrinone drip this morning Status post AICD placement Continue diuretics Patient states that he takes beta-annetta, hydralazine, clonidine, losartan at home His blood pressure is in the low normal range Discussed with patient to avoid clonidine and monitor his blood pressure closely Chronic cough Likely multifactorial including chronic CHF and chronic bronchitis Morbid obesity Discussed lifestyle modification Healthy diet and weight management A1c 6.7 Dyslipidemia Triglycerides 295 with normal cholesterol and LDL Continue statin History of sickle cell diseasecame with chest pain and shortness of breath Pain management as needed COPD/chronic bronchitis Continue home medications Patient states that he does not need any refills History of DVT/ ?? P Afib Continue Eliquis 5 mg twice daily History of MAHSA Continue CPAP at bedtime HPI: The patient is a 50-year-old male. He has His medical history includes heart disease with stents, currently takes aspirin, also has a history of DVT and pulmonary embolism, currently on Eliquis, for the past 3 years, also has a history of sickle cell, with partial splenic infarction, and CHF, with ICD in situ. He has been back in [place] for about a month. Previously, he was living in [place], in [place]. He has been seen at both [facility], and [facility], in [place], and believes that he may have had a cardiac catheterization within the past 5 months. He is not quite sure what the catheterization showed. He presents to the ER today with a complaint of chest pain, shortness of breath, lower extremity swelling, feeling volume overloaded. He took aspirin and nitro at home with minimal improvement in symptoms. He has not received his Covid vaccination. He denies loss of taste and smell. He endorses nausea, without vomiting. No diaphoresis. No hematemesis of bright red blood per rectum. He denies use of erectile dysfunction medication. ED work-up WBC 7.6, hemoglobin 12.3, platelets 272, sodium 135, potassium 3.6, creatinine 1.1, troponin is negative hemoglobin A1c done 6.7, serum glucose 1.3, and BNP 147. Checks x-ray done no acute finding. Patient is seen in the ED alert and oriented x3 patient reports chest pain or shortness of breath. Patient is on room air O2 sats 95%. Reviewed patient lab valuesnegative for elevated troponin. CTA of the chest is ordered to rule out PE. Patient denies alcohol and illicit drug use. Patient admits tobacco use but quit 2 years ago. Patient advised to continue to quit tobacco use. Daily clinical course: 05/06/21: Patient recently moved out from [place]. Has history of CHF with AICD placed. Continue gentle diuresis, nebulizer breathing treatment. Patient did not receive any Covid vaccine but states that he tested negative few days ago. Await for cardiology recommendation. Continue current management and plan. 05/07/21; 2D echo showed EF of 15%, cardiology recommended to initiate on milrinone drip. Continue IV diuretics, monitor ins and outs and daily weight. 05/08 patient is alert and oriented complains of cough and wants Phenergan for his cough, he denies chest pain, nausea, abdominal pain. Denies fever or chills He appears mildly dyspneic, he is on milrinone drip. Cardiology note reviewed. Lab results reviewed 05/09 patient is alert and oriented, moderately short of breath, complains of cough and insists on getting Promethazine DM for his cough Cardiology note reviewed 05/10 patient states that he is feeling better and states his shortness of breath is a whole lot better today and prefers to go home today. Cardiology note reviewed and discussed with Dr. Jona Montejo. He is cleared for discharge and needs follow-up with cardiology in 3 to 4 days in the clinic. Patient is medically stable for discharge. Patient states that he does not need refills on his medications except for Seroquel and Percocet Disposition: DC-01 TO HOME OR SELFCARE Final Discharge Diagnosis (Prints w/discharge instructions): Acute on chronic systolic CHF Time spent for discharge: 38 minutes Core Measure Documentation - Palliative Care Palliative Care/ Comfort Measures: Not Applicable - Core Measures Any of the following diagnoses?: heart failure - Heart Failure Discharge Requirements REMEDIOS/ARB for LVSD if EF <40%: Yes (Patient is not on ARB or REMEDIOS while in the hospital but per conversation with the patient he takes losartan at home) Beta annetta at discharge: Yes Exam - Constitutional Vitals: Temp Pulse Resp BP Pulse Ox 98.0 F 85 20 112/58 93 05/10/21 07:40 05/10/21 09:28 05/10/21 07:40 05/10/21 09:28 05/10/21 09:24 General appearance: Present: no acute distress, obese - EENT Eyes: Present: PERRL, EOM intact ENT: hearing intact, clear oral mucosa - Neck Neck: Present: supple, normal ROM - Respiratory Respiratory effort: normal Respiratory: bilateral: CTA, diminished - Cardiovascular Rhythm: regular Heart Sounds: Present: S1 & S2 - Extremities Extremities: No edema - Abdominal General gastrointestinal: Present: soft, non-tender Male genitourinary: Present: deferred - Rectal Rectal Exam: deferred - Integumentary Integumentary: Present: clear - Musculoskeletal Musculoskeletal: strength equal bilaterally - Psychiatric Psychiatric: appropriate mood/affect - Neurologic Neurologic: no focal deficits Plan Activity: advance as tolerated Weight Bearing Status: Weight Bear as Tolerated Diet: regular, low fat, low cholesterol, low salt, diabetic Special Instructions: restrict fluid intake to (1200 ml/day) Follow up with: PRIMARY CAREMD [Primary Care Provider] - 3-5 Days BHARATI CALDERON MD [Staff Physician] - 3 Days Prescriptions: oxyCODONE /ACETAMINOPHEN [Percocet 5/325 mg] 1 tab PO Q6H PRN #14 tablet PRN Reason: Pain , Severe (7-10) Promethazine/Dextromethorphan [Promethazine-Dm Solution] 10 ml PO TID PRN 5 Days #100 ml PRN Reason: Cough QUEtiapine [SEROquel] 25 mg PO QHS #30 tablet
[2021-05-10] MEDS: IPRATROPIUM/ALBUTEROL SULFATE 3 ML AMPUL.NEB IH SCH (11:05)
== END 2021-05-10 12:12 | disposition home or self-care (01) | DRG 291 ==
LOC: ED 20:02 → 4A 21:49 → OBSVTOIN 05-06 16:27
PROVIDERS: ADMIT Hospitalist; ATTEND Internal Medicine
DX: I11.0 Hypertensive heart disease with heart failure (principal); J96.00 Acute respiratory failure, unspecified whether with hypoxia or hypercapnia; I50.23 Acute on chronic systolic (congestive) heart failure; E66.01 Morbid (severe) obesity due to excess calories; D57.1 Sickle-cell disease without crisis; E78.5 Hyperlipidemia, unspecified; J44.1 Chronic obstructive pulmonary disease with (acute) exacerbation; J45.901 Unspecified asthma with (acute) exacerbation; I48.0 Paroxysmal atrial fibrillation; G47.30 Sleep apnea, unspecified; I42.8 Other cardiomyopathies; G47.33 Obstructive sleep apnea (adult) (pediatric); F51.9 Sleep disorder not due to a substance or known physiological condition, unspecified; Z68.43 Body mass index [BMI] 50.0-59.9, adult; Z71.3 Dietary counseling and surveillance; Z86.718 Personal history of other venous thrombosis and embolism; Z79.01 Long term (current) use of anticoagulants; Z95.810 Presence of automatic (implantable) cardiac defibrillator; Z79.899 Other long term (current) drug therapy; Z79.891 Long term (current) use of opiate analgesic; Z87.891 Personal history of nicotine dependence; Z88.8 Allergy status to other drugs, medicaments and biological substances; Z88.0 Allergy status to penicillin; I25.2 Old myocardial infarction; Z83.3 Family history of diabetes mellitus; Z82.49 Family history of ischemic heart disease and other diseases of the circulatory system; Z86.711 Personal history of pulmonary embolism; Z95.818 Presence of other cardiac implants and grafts
CPT/HCPCS: 36415; 71045; 71275; 80048; 80053; 80061; 82550; 83036; 83735; 83880; 84484; 85007; 85025; 85027; 85379; 85610; 93005; 93306; 94640; 96374; 96375; G0378; J1940; J2260; J2270; Q0169; Q9967